=== PATIENT | male | born 1945 | race Two or more races ===

== ENCOUNTER 2018-04-19 08:13 | Emergency (ER) | payer MEDICAID ==
[~2018-04-19] VITALS: Ht 167.6 cm; Wt 72.6 kg
[2018-04-19] MEDS ORDERED: LISINOPRIL5 MG ORAL (08:15)
[2018-04-19] MEDS ORDERED: ASPIR 8181 MG ORAL (08:15)
[2018-04-19] MEDS ORDERED: ATORVASTATIN CA10 MG ORAL (08:15)
[2018-04-19] MEDS ORDERED: METFORMIN HCL500 M1 ORAL (08:15)
--- NOTE | 2018-04-19 08:21 | Emergency Room Report ---
History of Present Illness General Chief Complaint: Altered Level of Consciousness Source: EMS Present Illness HPI Patient brought in by paramedics for altered mental status and unresponsiveness patient has had previous CVA It was reported by paramedics that this morning attempting to awaken the patient he appeared less responsive to the family and therefore the paramedics were summoned History of present illness is limited we are pending further family to present There was no previous reports of chest pain or shortness of breath patient has right-sided deficit from previous stroke Unknown regarding medications Unknown the specific time of last known well Allergies: Coded Allergies: PENICILLINS (Verified Allergy, Unknown, 04/19/18) Patient History Limited by: medical condition Past Medical History: see triage record Pertinent Family History: unable to obtain Reviewed Nursing Documentation: PMH: Agreed; PSxH: Agreed Nursing Documentation-PMH Hx Hypertension: Yes Hx Diabetes: Yes Hx Cerebrovascular Accident: Yes - right side deficits Review of Systems All Other Systems: limited - Other than the ones mentioned in the history of present illness all others are reviewed however they do stay limited due to the patient's mental status Physical Exam Vital Signs Date Time Temp Pulse Resp B/P (MAP) Pulse Ox O2 Delivery O2 Flow Rate FiO2 04/19/18 08:10 98.2 108 16 152/86 97 Room Air Sp02 EP Interpretation: reviewed, normal General Appearance: no apparent distress Head: normocephalic, atraumatic Eyes: bilateral eye EOMI ENT: other - Slurring of speech with right facial Neck: supple Respiratory: lungs clear, no retraction, no accessory muscle use Cardiovascular #1: regular rate, rhythm Gastrointestinal: non tender, soft Musculoskeletal: other - Significant right-sided deficit Neurologic: responsive - To verbal stimuli, awake, does not know why he is here , underlying confusion, cannot tell the year Skin: normal color, no rash Lymphatic: no adenopathy Procedures Critical Care Time Critical Care Time 50 minutes for multiple re-evaluations, critical findings including intracranial hemorrhage, repeat neurological exams, speaking to specialist not including any procedural time Medical Decision Making Diagnostic Impression: Primary Impression: Intracranial hemorrhage Additional Impressions: Subarachnoid hemorrhage Seizure ER Course Upon initial arrival multiple differentials are considered Including but not limited to neurological, neurosurgical, infectious pathology Patient's son presented and provides significantly different history He reports of the patient had a fall yesterday at 2 in the afternoon Appeared to be doing well This morning he was also awake and at baseline mental status At which time he appeared to become more stiff and have possible seizure activity And began breathing heavily At that point the paramedics were summoned This information was not provided upon initial arrival Therefore the patient's last known well is a possibly 7:[address] head does reveal evidence of scattered subarachnoid hemorrhage Likely resulted from trauma yesterday After patient's seizure activity was provided with oxygen Keppra In discussion with [facility] neurology initiated on DDAVP Patient is extremely critical with critical findings of intracranial hemorrhage Requiring high level of care transfer [facility] was contacted After not receiving call back emergently [facility] [place] I spoke to the stroke neurologist who agrees on transfer for higher level of care and provided input as well Patient's head is at 45 at bedside blood pressure is 140 systolic Requiring transfer for higher level of care After the patient's activity in the emergency room he was mildly postictal however became again more oriented at baseline levels Airway remains patent and patient maintaining appropriate protection did not require further intervention prior to transfer Labs Test 04/19/18 08:25 04/19/18 10:00 White Blood Count 7.6 K/UL (4.8-10.8) Red Blood Count 3.90 M/UL (4.70-6.10) Hemoglobin 10.7 G/DL (14.2-18.0) Hematocrit 33.6 % (42.0-52.0) Mean Corpuscular Volume 86 FL (80-99) Mean Corpuscular Hemoglobin 27.5 PG (27.0-31.0) Mean Corpuscular Hemoglobin Concent 31.9 G/DL (32.0-36.0) Red Cell Distribution Width 14.7 % (11.6-14.8) Platelet Count 237 K/UL (150-450) Mean Platelet Volume 8.3 FL (6.5-10.1) Neutrophils (%) (Auto) 64.8 % (45.0-75.0) Lymphocytes (%) (Auto) 28.6 % (20.0-45.0) Monocytes (%) (Auto) 4.7 % (1.0-10.0) Eosinophils (%) (Auto) 1.5 % (0.0-3.0) Basophils (%) (Auto) 0.5 % (0.0-2.0) Urine Color Pale yellow Urine Appearance Clear Urine pH 5 (4.5-8.0) Urine Specific [place] 1.020 (1.005-1.035) Urine Protein 2+ (NEGATIVE) Urine Glucose (UA) 3+ (NEGATIVE) Urine Ketones Negative (NEGATIVE) Urine Blood 2+ (NEGATIVE) Urine Nitrite Negative (NEGATIVE) Urine Bilirubin Negative (NEGATIVE) Urine Urobilinogen Normal MG/DL (0.0-1.0) Urine Leukocyte Esterase Negative (NEGATIVE) Urine RBC 5-10 /HPF (0 - 0) Urine WBC 0-2 /HPF (0 - 0) Urine Squamous Epithelial Cells Occasional /LPF Urine Bacteria Occasional /HPF (NONE) Sodium Level 141 MMOL/L (136-145) Potassium Level 3.8 MMOL/L (3.5-5.1) Chloride Level 106 MMOL/L (98-107) Carbon Dioxide Level 27 MMOL/L (21-32) Anion Gap 8 mmol/L (5-15) Blood Urea Nitrogen 19 mg/dL (7-18) Creatinine 1.0 MG/DL (0.55-1.30) Estimat Glomerular Filtration Rate mL/min (>60) Glucose Level 246 MG/DL (74-106) Lactic Acid Level 2.10 mmol/L (0.4-2.0) Calcium Level 8.5 MG/DL (8.5-10.1) Total Bilirubin 0.3 MG/DL (0.2-1.0) Aspartate Amino Transf (AST/SGOT) 20 U/L (15-37) Alanine Aminotransferase (ALT/SGPT) 18 U/L (12-78) Alkaline Phosphatase 113 U/L (46-116) Total Creatine Kinase 197 U/L (26-308) Creatine Kinase MB 1.9 NG/ML (0.0-3.6) Creatine Kinase MB Relative Index 0.9 Troponin I 0.022 ng/mL (0.000-0.056) Total Protein 8.1 G/DL (6.4-8.2) Albumin 3.0 G/DL (3.4-5.0) Globulin 5.1 g/dL Albumin/Globulin Ratio 0.6 (1.0-2.7) Lipase 156 U/L (73-393) EKG Diagnostic Results Rate: tachycardiac Rhythm: other ST Segments: other - Sinus tach Rhythm Strip Diag. Results EP Interpretation: yes Rate: 100 Rhythm: no PVC's, no ectopy, other - Sinus tach Chest X-Ray Diagnostic Results Chest X-Ray Diagnostic Results : Chest X-Ray Ordered: Yes # of Views/Limited/Complete: 1 View Indication: Chest Pain EP Interpretation: Yes Interpretation: no consolidation, no effusion, no pneumothorax, other - Mild increased markings Impression: Other - Interstitial disease, versus congestion, versus pneumonia Electronically Signed by: Mandy Maguire DO CT/MRI/US Diagnostic Results CT/MRI/US Diagnostic Results : Impression cT headIMPRESSION: 1. Scattered subarachnoid hemorrhage, including bilateral frontal, bilateral parafalcine region, left parietal. Trace subdural blood along the falx and left frontal region measuring up to 3.5 mm. No mass effect. 2. Involutional and small vessel changes. 3. Old right thalamic and left basal ganglia lacunar infarcts. 4. Hyperdensity in the right globe with scleral banding, possible hemorrhage. Last Vital Signs Date Time Temp Pulse Resp B/P (MAP) Pulse Ox O2 Delivery O2 Flow Rate FiO2 04/19/18 08:10 98.2 108 16 152/86 97 Room Air Status: unchanged Disposition: XFER [facility] Condition: Critical Mandy Maguire DO Apr 19, 2018 08:21
[2018-04-19 08:34] VITALS: BP 136/86
--- NOTE | 2018-04-19 08:35 | NUR ---
ED Nurse Note: Pt BIBA from home due to ALOC. Per family, pt usually AOx4, "wake up and have breakfast on his own, communicates with family", today he woke up and mumbled on the couch on his own, did not respond to family appropriately. At facility, pt only answered his name, reacted to pain. HR 105 jaimee, ERMD aware. Hx of CVA, right side deficit. Pt has wounds on bilateral foot. Blood and urine collected and sent to lab. Will cont to monitor.
--- NOTE | 2018-04-19 08:40 | NUR ---
ED Nurse Note: Pt down to CT for imaging.
[2018-04-19 08:47] LABS: APPEARANCE,URINE CLEAR; BILIRUBIN, URINE NEGATIVE (NEGATIVE); COLOR,URINE PALE YELLOW; GLUCOSE, URINE (UA) 3+ (NEGATIVE); KETONES,URINE NEGATIVE (NEGATIVE); LEUKOCYTE ESTERASE ,URINE NEGATIVE (NEGATIVE); NITRITE,URINE NEGATIVE (NEGATIVE); PH,URINE 5 (4.5-8.0); PROTEIN,URINE 2+ (NEGATIVE); UROBILINOGEN,URINE NORMAL MG/DL (0.0-1.0)
[2018-04-19 08:53] LABS: ANION GAP 8 mmol/L (5-15); BLOOD UREA NITROGEN 19 mg/dL (7-18); CALCIUM 8.5 MG/DL (8.5-10.1); CARBON DIOXIDE 27 MMOL/L (21-32); CHLORIDE 106 MMOL/L (98-107); POTASSIUM 3.8 MMOL/L (3.5-5.1); SODIUM 141 MMOL/L (136-145)
[2018-04-19 08:54] LABS: BASOPHILS % (AUTO) 0.5 % (0.0-2.0); EOSINOPHILS % (AUTO) 1.5 % (0.0-3.0); HEMATOCRIT 33.6 % (42.0-52.0); HEMOGLOBIN 10.7 G/DL (14.2-18.0); LYMPHOCYTES % (AUTO) 28.6 % (20.0-45.0); MEAN CORPUSCULAR VOLUME 86 FL (80-99); MONOCYTES % (AUTO) 4.7 % (1.0-10.0); NEUTROPHILS % (AUTO) 64.8 % (45.0-75.0); PLATELET COUNT 237 K/UL (150-450); RED CELL DISTRIBUTION WIDTH 14.7 % (11.6-14.8); WHITE BLOOD COUNT 7.6 K/UL (4.8-10.8)
[2018-04-19 09:05] LABS: ALANINE AMINOTRANSFERASE 18 U/L (12-78); ALBUMIN/GLOBULIN RATIO 0.6 (1.0-2.7); ALKALINE PHOSPHATASE 113 U/L (46-116); ASPARTATE AMINO TRANSFERASE 20 U/L (15-37); BILIRUBIN,TOTAL 0.3 MG/DL (0.2-1.0); CKMB 1.9 NG/ML (0.0-3.6); CREATINE KINASE 197 U/L (26-308)
--- NOTE | 2018-04-19 09:15 | Diagnostic Imaging Report ---
EXAM: XR Chest, 1 View CLINICAL HISTORY: CP TECHNIQUE: Frontal view of the chest. COMPARISON: No relevant prior studies available. FINDINGS: Lungs: Hypoventilatory lungs. Mild interstitial prominence. No focal infiltrate or consolidation. Pleural space: Unremarkable. No pneumothorax. Heart: Unremarkable. No cardiomegaly. Mediastinum: Unremarkable. Bones/joints: Mild degenerative changes of the spine. IMPRESSION: Hypoventilatory lungs. Mild interstitial prominence, query mild vascular congestion or pneumonitis.
--- NOTE | 2018-04-19 09:35 | Diagnostic Imaging Report ---
EXAM: CT Head Without Intravenous Contrast CLINICAL HISTORY: AMS TECHNIQUE: Axial computed tomography images of the head/brain without intravenous contrast. CTDI is 70.38 mGy and DLP is 1354 mGy-cm. One or more of the following dose reduction techniques were used: automated exposure control, adjustment of the mA and/or kV according to patient size, use of iterative reconstruction technique. COMPARISON: No relevant prior studies available. FINDINGS: Brain: Scattered subarachnoid hemorrhage, including bilateral frontal, bilateral parafalcine region, left parietal. Trace subdural blood along the falx and left frontal region measuring up to 3.5 mm. Old right thalamic and left basal ganglia lacunar infarcts. Scattered white matter chronic small vessel ischemia. Involutional changes with prominence of the ventricles and sulci. Ventricles: No ventriculomegaly. Bones/joints: Unremarkable. No acute fracture. Soft tissues: Unremarkable. Sinuses: Unremarkable as visualized. No acute sinusitis. Mastoid air cells: Unremarkable as visualized. No mastoid effusion. Orbits: Hyperdensity in the right globe with scleral banding. IMPRESSION: 1. Scattered subarachnoid hemorrhage, including bilateral frontal, bilateral parafalcine region, left parietal. Trace subdural blood along the falx and left frontal region measuring up to 3.5 mm. No mass effect. 2. Involutional and small vessel changes. 3. Old right thalamic and left basal ganglia lacunar infarcts. 4. Hyperdensity in the right globe with scleral banding, possible hemorrhage. [employer] 04/19/18 09:36 Call Doctor Regarding Intracranial Hemorrhage, called Mandy Maguire MD on 04/19 09:35 (-08:00)
[2018-04-19] MEDS ORDERED: LORazepam Inj 2mg/ml 1ml ONE (09:56)
[2018-04-19] MEDS ORDERED: LORazepam Inj 2mg/ml 1ml IV ONE (10:00)
[2018-04-19] MEDS ORDERED: levETIRAcetam 1,000mg/NS100ml 100 ML IVPB ONE (10:00)
--- NOTE | 2018-04-19 10:00 | NUR ---
ED Nurse Note: Pt actively seizing at this time, Ativan overrided and Keppra discarded from [facility] and given. Seizure precaution applied, pt on oxygen 15L non-rebreather mask and suction on site. Pads applied. Incontinence noticed, no oral trauma. Family at bedside and stated pt fell on the ground level and hit his head yesterday, seized this morning once. No wound noted on head.
[2018-04-19] MEDS ORDERED: LISINOPRIL20 MG ORAL (10:07)
[2018-04-19] MEDS ORDERED: Desmopressin (DDAVP) Inj IV ONE ×2 (10:15)
--- NOTE | 2018-04-19 10:25 | NUR ---
ED Nurse Note: 2mcg of Desmopressin received from Pharmacy and given at this time.
[2018-04-19] MEDS ORDERED: Desmopressin (DDAVP) Inj IV SCH (10:36)
--- NOTE | 2018-04-19 10:41 | NUR ---
ED Nurse Note: Total of 22mcg Desmopressin given to pt at this time, pharmacy aware about order change.
--- NOTE | 2018-04-19 11:00 | NUR ---
ED Nurse Note: Report given to CHAD Centeno at [facility]. Awaiting for the ambulance.
[2018-04-19 11:01] VITALS: BP 136/69
--- NOTE | 2018-04-19 11:14 | NUR ---
ED Nurse Note: RN talked to Charge Nurse Gita about wasting Ativan, 1mg Ativan wasted in the [facility].
--- NOTE | 2018-04-19 11:26 | NUR ---
ED Nurse Note: Ambulance personels at bedside for transportation.
[2018-04-19 11:27] VITALS: BP 136/69
== END 2018-04-19 11:27 | disposition short-term general hospital (02) ==
LOC: EDBD 08:13 → EMR 08:25 → EDBD 08:25 → EMR 11:27
DX: I60.9 Nontraumatic subarachnoid hemorrhage, unspecified (principal); R56.9 Unspecified convulsions; E11.9 Type 2 diabetes mellitus without complications; I10 Essential (primary) hypertension; I69.398 Other sequelae of cerebral infarction; Z88.0 Allergy status to penicillin
CPT/HCPCS: 36415; 70450; 71045; 80053; 81003; 82550; 82553; 82962; 83605; 83690; 83880; 84484; 85025; 87040; 93005; 96365; 96367; 96375; 99291; J1953; J1956; J2597; J7040

== ENCOUNTER 2019-11-17 03:05 | Emergency (ER) | payer MEDICAID, OTHER ==
[~2019-11-17] VITALS: Ht 172.7 cm; Wt 74.8 kg
[~2019-11-17 03:05] MED LIST: ASPIR 8181 MG ORAL; ATORVASTATIN CA10 MG ORAL; LISINOPRIL20 MG ORAL; LISINOPRIL5 MG ORAL; METFORMIN HCL500 M1 ORAL
--- NOTE | 2019-11-17 03:15 | Emergency Room Report ---
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 He has right-sided weakness. He presents with chief complaint abdominal pain. He is a poor historian. Initially the complaint was abdominal pain per EMS. To me he denies any abdominal pain. Then he said he is constipated. Said that he had had a bowel movement for a week. But then said that he had a bowel movement yesterday and a large "ball" of stool came out. Tonight he said he had hiccuping caused him to have nausea and vomiting. But better now. Denies any fever chills. No diarrhea. Nothing made it better. Nothing made it worse. Allergies: Coded Allergies: PENICILLINS (Verified Allergy, Unknown, 04/19/18) COVID-19 Screening Contact w/high risk pt: No Experienced COVID-19 symptoms?: No COVID-19 Testing performed [employer]: No Patient History Past Medical History: see triage record, old chart reviewed, CVA/TIA Past Surgical History: other Pertinent Family History: none Social History: Denies: smoking Immunizations: other Reviewed Nursing Documentation: PMH: Agreed; PSxH: Agreed Nursing Documentation-PMH Hx Hypertension: Yes Hx Diabetes: Yes Hx Cerebrovascular Accident: Yes - right side deficits Review of Systems Eye: Denies: eye pain, blurred vision ENT: Denies: ear pain, nose congestion, throat swelling Respiratory: Denies: cough, shortness of breath Cardiovascular: Denies: chest pain, palpitations Gastrointestinal: Reports: abdominal pain, nausea, vomiting; Denies: diarrhea Musculoskeletal: Denies: back pain, joint pain Skin: Denies: rash Neurological: Denies: headache, numbness Endocrine: Denies: increased thirst, increased urine Hematologic/Lymphatic: Denies: easy bruising All Other Systems: negative except mentioned in HPI Physical Exam Vital Signs Date Time Temp Pulse Resp B/P (MAP) Pulse Ox O2 Delivery O2 Flow Rate FiO2 11/17/19 03:06 98.6 70 18 138/86 (103) 100 Room Air Vitals normal Sp02 EP Interpretation: reviewed, normal General Appearance: well appearing, no apparent distress, alert Head: normocephalic, atraumatic Eyes: bilateral eye PERRL, bilateral eye EOMI ENT: hearing grossly normal, normal pharynx Neck: full range of motion, supple, no meningismus Respiratory: chest non-tender, lungs clear, normal breath sounds Cardiovascular #1: regular rate, rhythm, no murmur Gastrointestinal: normal bowel sounds, non tender, no mass, no organomegaly, no bruit, non-distended, other - Abdomen is protuberant. Musculoskeletal: back normal, normal range of motion Neurologic: other - Right-sided weakness. Chronic. Psychiatric: mood/affect normal Medical Decision Making Diagnostic Impression: Primary Impression: Abdominal pain Qualified Codes: R10.84 - Generalized abdominal pain Additional Impression: Anemia Qualified Codes: D64.9 - Anemia, unspecified ER Course Patient presents with abdominal pain. He has no pain here. CT scan showed gallstones but no evidence of any acute process. Labs normal. He does not have any right upper quadrant pain. Will discharge home. CT/MRI/US Diagnostic Results CT/MRI/US Diagnostic Results : Imaging Test Ordered: CT abdomen pelvis Impression Read by radiologist. Gallstone. Otherwise negative. Last Vital Signs Date Time Temp Pulse Resp B/P (MAP) Pulse Ox O2 Delivery O2 Flow Rate FiO2 11/17/19 03:06 98.6 70 18 138/86 (103) 100 Room Air Status: improved Disposition: HOME, SELF-CARE Condition: Stable Patient Instructions: Abdominal Pain, Adult Additional Instructions: Follow-up with your doctor in 2 to 3 days. Return if symptoms worsen. Enzo Reyna MD Nov 17, 2019 03:15
[2019-11-17 03:28] VITALS: BP 161/66
[2019-11-17 03:33] LABS: BASOPHILS % (AUTO) 0.6 % (0.0-2.0); EOSINOPHILS % (AUTO) 1.4 % (0.0-3.0); HEMATOCRIT 32.1 % (42.0-52.0); HEMOGLOBIN 10.4 G/DL (14.2-18.0); MEAN CORPUSCULAR VOLUME 87 FL (80-99); MONOCYTES % (AUTO) 4.9 % (1.0-10.0); PLATELET COUNT 304 K/UL (150-450); RED BLOOD COUNT 3.69 M/UL (4.70-6.10); RED CELL DISTRIBUTION WIDTH 11.9 % (11.6-14.8); WHITE BLOOD COUNT 7.3 K/UL (4.8-10.8)
[2019-11-17 03:43] LABS: ANION GAP 10 mmol/L (5-15); BLOOD UREA NITROGEN 23 mg/dL (7-18); CARBON DIOXIDE 22 MMOL/L (21-32); CHLORIDE 95 MMOL/L (98-107); CREATININE 1.5 MG/DL (0.55-1.30); POTASSIUM 4.7 MMOL/L (3.5-5.1); SODIUM 127 MMOL/L (136-145)
[2019-11-17 03:54] LABS: ALANINE AMINOTRANSFERASE 15 U/L (12-78); ALBUMIN/GLOBULIN RATIO 0.5 (1.0-2.7); ALKALINE PHOSPHATASE 129 U/L (46-116); ASPARTATE AMINO TRANSFERASE 20 U/L (15-37); BILIRUBIN,TOTAL 0.3 MG/DL (0.2-1.0)
[2019-11-17 04:14] LABS: APPEARANCE,URINE CLEAR; BILIRUBIN, URINE NEGATIVE (NEGATIVE); COLOR,URINE PALE YELLOW; GLUCOSE, URINE (UA) NEGATIVE (NEGATIVE); KETONES,URINE NEGATIVE (NEGATIVE); LEUKOCYTE ESTERASE ,URINE NEGATIVE (NEGATIVE); NITRITE,URINE NEGATIVE (NEGATIVE); PH,URINE 6 (4.5-8.0); PROTEIN,URINE NEGATIVE (NEGATIVE); UROBILINOGEN,URINE NORMAL MG/DL (0.0-1.0)
--- NOTE | 2019-11-17 04:25 | Diagnostic Imaging Report ---
EXAM: CT Abdomen and Pelvis Without Intravenous Contrast CLINICAL HISTORY: ABD PAIN TECHNIQUE: Axial computed tomography images of the abdomen and pelvis without intravenous contrast. CTDI is 8.40 mGy and DLP is 453.50 mGy-cm. One or more of the following dose reduction techniques were used: automated exposure control, adjustment of the mA and/or kV according to patient size, use of iterative reconstruction technique. COMPARISON: No relevant prior studies available. FINDINGS: Lung bases: There is minimal bibasilar subsegmental dependent type atelectasis in the lungs. ABDOMEN: Liver: Unremarkable. Gallbladder and bile ducts: Cholelithiasis. No abnormal gallbladder distention or biliary duct dilation. Pancreas: Unremarkable. No ductal dilation. Spleen: Unremarkable. No splenomegaly. Adrenals: Unremarkable. No mass. Kidneys and ureters: Unremarkable. No obstructing stones. No hydronephrosis. Stomach and bowel: Unremarkable. No obstruction. No mucosal thickening. PELVIS: Appendix: No findings to suggest acute appendicitis. Bladder: Unremarkable. No stones. Reproductive: Unremarkable as visualized. ABDOMEN and PELVIS: Intraperitoneal space: Unremarkable. No free air. No significant fluid collection. Bones/joints: Degenerative changes of the spine with multilevel bridging osteophyte formation. No acute fracture. No dislocation. Soft tissues: Unremarkable. Vasculature: Atherosclerotic calcification of the abdominal aorta and bilateral iliac arteries. No abdominal aortic aneurysm. Lymph nodes: Unremarkable. No enlarged lymph nodes. IMPRESSION: 1. No acute abdominal or pelvic pathology. 2. Cholelithiasis.
[2019-11-17 07:04] VITALS: BP 155/78
== END 2019-11-17 07:04 | disposition home or self-care (01) ==
LOC: EDBD 03:05 → EMR 03:22
DX: R10.84 Generalized abdominal pain (principal); D64.9 Anemia, unspecified; K80.80 Other cholelithiasis without obstruction; E11.9 Type 2 diabetes mellitus without complications; I10 Essential (primary) hypertension; G81.91 Hemiplegia, unspecified affecting right dominant side; Z88.0 Allergy status to penicillin
CPT/HCPCS: 36415; 74176; 80053; 81003; 83690; 85025; 96361; 96374; J2405; J7030; Z7502; 99284